=== PATIENT | male | born 1995 ===

== ENCOUNTER 2018-01-15 18:12 | Emergency (ER) | payer OTHER | END 2018-01-15 22:13 | disposition home or self-care (01) | LOC: FTE 18:12 | DX: S92.911A Unspecified fracture of right toe(s), initial encounter for closed fracture (principal); W20.8XXA Other cause of strike by thrown, projected or falling object, initial encounter; Y92.89 Other specified places as the place of occurrence of the external cause | CPT/HCPCS: 73630; 99283-25 ==